=== PATIENT | male | born 1960 | race Two or more races ===

== ENCOUNTER 2016-08-02 13:55 | Inpatient (IN) | payer MEDICAID ==
[~2016-08-02] VITALS: Ht 167.6 cm; Wt 60.1 kg
[2016-08-02 15:16] LABS: UA SPECIFIC GRAVITY 1.025 (1.005-1.035); microscopic required? YES; urine erythrocyte 2+ (NEGATIVE)
[2016-08-02 15:17] LABS: microscopic required? YES; urine erythrocyte 3+ (NEGATIVE)
[2016-08-02 15:21] LABS: BASOPHIL % 0.4 % (0-2); PLATELET COUNT 396 x10^3mcL (130-400)
[2016-08-02 15:24] LABS: RED CELL DISTRIBUTION WIDTH 16.3 % (11.5-14.5)
[2016-08-02 15:31] LABS: CALCIUM 9.1 mg/dL (8.5-10.1); CARBON DIOXIDE 29.1 mmol/L (21-32); CREATININE SERUM 1.5 mg/dL (0.7-1.3)
[2016-08-02 15:35] LABS: BILIRUBIN TOTAL 0.3 mg/dL (0.20-1.00); MAGNESIUM 2.1 mg/dL (1.8-2.4); TOTAL PROTEIN, SERUM 8.1 g/dL (6.4-8.2)
[2016-08-02 15:38] LABS: ALBUMIN 3.2 g/dL (3.4-5.0)
[2016-08-02] MEDS ORDERED: NOR10T (17:00)
[2016-08-02 17:19] LABS: T3 TOTAL 0.79 ng/mL
[2016-08-02 17:43] LABS: AMPHETAMINE QUAL UR NONE DETECTED (NEG <=1000)
[2016-08-02 17:49] LABS: FREE T4 1.22 ng/dL (0.76-1.46); FREE THYROXINE INDEX 2.9 ug/dL (1.4-4.5)
[2016-08-02 18:25] VITALS: BP 118/70
[2016-08-02 18:28] VITALS: Ht 167.6 cm; Wt 60.1 kg
[2016-08-02 19:45] VITALS: BP 118/72
[2016-08-02 21:58] VITALS: BP 117/83
[2016-08-03 05:34] VITALS: BP 105/62
[2016-08-03 06:16] LABS: BASOPHIL % 0.7 % (0-2); PLATELET COUNT 310 x10^3mcL (130-400)
[2016-08-03 06:36] LABS: CALCIUM 8.4 mg/dL (8.5-10.1); CARBON DIOXIDE 25.7 mmol/L (21-32); CHLORIDE SERUM 107 mmol/L (98-107); CREATININE SERUM 1.2 mg/dL (0.7-1.3); GFR1 > 60 mL/min; GLUCOSE SERUM 92 mg/dL (74-106); MAGNESIUM 1.9 mg/dL (1.8-2.4); PHOSPHOROUS 3.3 mg/dL (2.5-4.9); POTASSIUM SERUM 4.1 mmol/L (3.5-5.1); RED CELL DISTRIBUTION WIDTH 16.3 % (11.5-14.5); SODIUM SERUM 139 mmol/L (136-145)
[2016-08-03 09:34] VITALS: BP 110/63
[2016-08-03 13:33] VITALS: BP 116/66
[2016-08-03 17:09] VITALS: BP 111/63
[2016-08-03 21:50] VITALS: BP 111/74
[2016-08-04 05:43] VITALS: BP 98/54
[2016-08-04 07:09] LABS: BASOPHIL % 0.3 % (0-2); PLATELET COUNT 304 x10^3mcL (130-400); RED CELL DISTRIBUTION WIDTH 16.4 % (11.5-14.5)
[2016-08-04 07:24] LABS: CALCIUM 8.3 mg/dL (8.5-10.1); CHLORIDE SERUM 106 mmol/L (98-107); CREATININE SERUM 1.3 mg/dL (0.7-1.3); GFR1 > 60 mL/min; GLUCOSE SERUM 97 mg/dL (74-106); MAGNESIUM 1.8 mg/dL (1.8-2.4); PHOSPHOROUS 3.5 mg/dL (2.5-4.9); POTASSIUM SERUM 4.1 mmol/L (3.5-5.1); SODIUM SERUM 140 mmol/L (136-145)
[2016-08-04 09:35] VITALS: BP 104/51
[2016-08-04] MEDS ORDERED: LAC PO ×2 (14:12→14:48)
[2016-08-04] MEDS ORDERED: CIPRO500 MG PO (14:12)
[2016-08-04] MEDS ORDERED: COLACE100 MG PO (14:13)
[2016-08-04 14:36] VITALS: BP 104/51
[2016-08-04] MEDS ORDERED: KEFLEX500 M1 PO (14:44)
[2016-08-04] MEDS ORDERED: NOR10T PO (14:45)
== END 2016-08-04 15:15 | disposition home or self-care (01) | DRG 463 ==
LOC: ED 13:55 → DU 16:30 → MU 08-03 17:47
PROVIDERS: Emergency Medicine; ADMIT Family Medicine
DX: N39.0 Urinary tract infection, site not specified (principal); N17.0 Acute kidney failure with tubular necrosis; E44.0 Moderate protein-calorie malnutrition; C67.9 Malignant neoplasm of bladder, unspecified; D63.8 Anemia in other chronic diseases classified elsewhere; D64.9 Anemia, unspecified; N99.520 Hemorrhage of incontinent external stoma of urinary tract; N18.3 Chronic kidney disease, stage 3 (moderate); Z68.21 Body mass index [BMI] 21.0-21.9, adult
CPT/HCPCS: 76001; 80307; 82962; 83880; 84439; C1729; C1887; J0696; J2001; J7030; J7040; Q0092; Q9967

== ENCOUNTER 2016-08-16 15:24 | Emergency (ER) | payer MEDICAID ==
[~2016-08-16] VITALS: Ht 167.6 cm; Wt 59.4 kg
[~2016-08-16 15:24] MED LIST: CIPRO500 MG PO; COLACE100 MG PO; KEFLEX500 M1 PO; LAC PO; NOR10T; NOR10T PO
[2016-08-16 16:40] LABS: BASOPHIL % 0.5 % (0-2); PLATELET COUNT 377 x10^3mcL (130-400)
[2016-08-16 16:41] LABS: RED CELL DISTRIBUTION WIDTH 17.4 % (11.5-14.5)
[2016-08-16 16:51] LABS: CREATININE SERUM 1.5 mg/dL (0.7-1.3); POTASSIUM SERUM 4.2 mmol/L (3.5-5.1)
[2016-08-16 16:56] LABS: ALBUMIN 3.1 g/dL (3.4-5.0); BILIRUBIN TOTAL 0.3 mg/dL (0.20-1.00); TOTAL PROTEIN, SERUM 7.7 g/dL (6.4-8.2)
[2016-08-16 18:30] LABS: microscopic required? YES; urine erythrocyte 3+ (NEGATIVE)
[2016-08-16 20:04] VITALS: BP 122/72
== END 2016-08-16 20:04 | disposition home or self-care (01) ==
LOC: ED 15:24
PROVIDERS: Emergency Medicine
DX: R10.9 Unspecified abdominal pain (principal); Z88.1 Allergy status to other antibiotic agents
CPT/HCPCS: J1170; J7030; Q0092

== ENCOUNTER 2016-09-13 16:00 | Emergency (ER) | payer OTHER ==
[~2016-09-13] VITALS: Ht 167.6 cm; Wt 59.0 kg
[2016-09-13 21:33] LABS: BASOPHIL % 0.4 % (0-2)
[2016-09-13 21:35] LABS: PLATELET COUNT 455 x10^3mcL (130-400); RED CELL DISTRIBUTION WIDTH 18.5 % (11.5-14.5)
[2016-09-13 21:43] LABS: CALCIUM 8.8 mg/dL (8.5-10.1); CARBON DIOXIDE 25.5 mmol/L (21-32); CREATININE SERUM 1.4 mg/dL (0.7-1.3); POTASSIUM SERUM 3.8 mmol/L (3.5-5.1)
[2016-09-13 21:46] LABS: BILIRUBIN TOTAL 0.39 mg/dL (0.20-1.00); TOTAL PROTEIN, SERUM 8.2 g/dL (6.4-8.2)
[2016-09-13 21:52] LABS: ALBUMIN 3.1 g/dL (3.4-5.0)
[2016-09-13 22:02] LABS: UA SPECIFIC GRAVITY 1.015 (1.005-1.035); microscopic required? YES; urine erythrocyte 3+ (NEGATIVE)
[2016-09-13 23:53] VITALS: BP 119/66
== END 2016-09-13 23:53 | disposition home or self-care (01) ==
LOC: ED 16:00
PROVIDERS: Emergency Medicine
DX: T83.012A Breakdown (mechanical) of nephrostomy catheter, initial encounter (principal); N39.0 Urinary tract infection, site not specified; D49.4 Neoplasm of unspecified behavior of bladder; Z79.899 Other long term (current) drug therapy; Z88.1 Allergy status to other antibiotic agents; Z93.6 Other artificial openings of urinary tract status
CPT/HCPCS: 50398; J0696; J2001

== ENCOUNTER 2016-09-18 15:38 | Emergency (ER) | payer OTHER ==
[2016-09-18 19:27] VITALS: BP 118/64
== END 2016-09-18 19:27 | disposition home or self-care (01) ==
LOC: ED 15:38
DX: T83.018A Breakdown (mechanical) of other urinary catheter, initial encounter (principal); Z79.899 Other long term (current) drug therapy; Z88.1 Allergy status to other antibiotic agents; Z87.448 Personal history of other diseases of urinary system

== ENCOUNTER 2016-10-17 00:27 | Emergency (ER) | payer OTHER ==
[~2016-10-17] VITALS: Ht 167.6 cm; Wt 62.1 kg
[2016-10-17 04:09] VITALS: BP 130/80
== END 2016-10-17 04:09 | disposition home or self-care (01) ==
LOC: ED 00:27
DX: T83.84XA Pain due to genitourinary prosthetic devices, implants and grafts, initial encounter (principal); R10.9 Unspecified abdominal pain; Z85.51 Personal history of malignant neoplasm of bladder; Z88.1 Allergy status to other antibiotic agents; Y92.89 Other specified places as the place of occurrence of the external cause